=== PATIENT | male | born 1965 | race Caucasian/White ===

== ENCOUNTER 2019-03-18 17:43 | Emergency (ER) | payer BC ==
[2019-03-18] MEDS ORDERED: Diph,Pert(Acell),Tet Vac 0.5 ML SYR IM ONE (19:12)
--- NOTE | 2019-03-18 19:19 | Emergency Department Record ---
History of Present Illness - General Chief Complaint: Laceration(s) Stated Complaint: RT INDEX LAC Time Seen by Provider: 03/18/19 19:08 Source: Patient Mode of Arrival: Ambulatory Limitations: No limitations - History of Present Illness Initial Commments: The patient is here due to cutting the tip of his R 2nd finger off at home with a knife 2 hours ago. His Td is not UTD. He does complain of mild pain. Onset/Timin -: Minutes(s) Place: Home Context: Accidental - [place] Coma Scale Eye Response: (4) Open spontaneously Motor Response: (6) Obeys commands Verbal Response: (5) Oriented Lul Total: 15 - Related Data Patient Tetanus UTD (within 5 yrs): No Home Medications Medication Instructions Recorded Confirmed Last Taken Omeprazole 20 mg PO DAILY 03/18/19 03/18/19 1 Day Ago ~03/17/19 Previous Rx's Medication Instructions Recorded Cephalexin [Keflex] 500 mg PO QID #20 cap 03/18/19 Allergies Allergy/AdvReac Type Severity Reaction Status Date / Time No Known Allergies Allergy HYPERSENSIT Verified 03/18/19 19:07 IVITY Travel Screening - Travel/Exposure Within Last 30 Days Have you traveled within the last 30 days?: No - Travel/Exposure Within Last Year Have you traveled outside the [place] in the last year?: No - Additonal Travel Details Have you been exposed to anyone with a communicable illness?: No - Travel Symptoms Symptom Screening: None Review of Systems Constitutional: Denies: Chills, Fever Past Medical History - SOCIAL HISTORY Smoking Status: Never smoker Alcohol Use: Rare Drug Use: None - RESPIRATORY Hx Respiratory Disorders: No - CARDIOVASCULAR Hx Cardio Disorders: Yes Hx Hypertension: Yes - NEURO Hx Neuro Disorders: No - GI Hx GI Disorders: No - Hx Genitourinary Disorders: No - ENDOCRINE Hx Endocrine Disorders: No - MUSCULOSKELETAL Hx Musculoskeletal Disorders: No - PSYCH Hx Psych Problems: No - HEMATOLOGY/ONCOLOGY Hx Hematology/Oncology Disorders: No Family Medical History Any Significant Family History?: Yes Physical Exam - General General Appearance: Alert, Oriented x3, Cooperative, No acute distress - Head Head exam: Atraumatic - Eye Eye exam: Normal appearance - Extremities Extremities exam: negative: Normal inspection (There is a 1x1 cm superficial lac over the distal finger tip where the skin is avulsed. There is no bone or tendon evident. There is nothing to suture.) Image of Finger Tip: 1 - Finger tip avulsion. Course Vital Signs 03/18/19 19:00 Temperature 98.3 F Pulse Rate 75 Respiratory 18 Rate Blood Pressure 122/80 Pulse Ox 98 - Reevaluation(s) Reevaluation #1: I did explain to the patient the need for a tube gauze dressing for 2 days then to have the finger covered with a bandaid during the day. He is to see his PCP this week for recheck. 03/18/19 19:18 Reevaluation #2: The R index finger tip avulsion was cleansed with betadine and sterile saline. A tube gauze dressing will be applied. 03/18/19 19:21 Disposition Disposition: Discharge Clinical Impression: Laceration of index finger Qualifiers: Encounter type: initial encounter Damage to nail status: with damage Foreign b maria victoria presence: without foreign body Laterality: right Qualified Code(s): S61.310A - Laceration without foreign body of right index finger with damage to nail, initial encounter Disposition: Home, Self-Care Condition: (2) Stable Instructions: Laceration (ED) Additional Instructions: Keep the tube gauze dressing on for 2 days and take the Keflex. Please see your family doctor this week for recheck. Return to the ER for any worsening s ymptoms. Prescriptions: Cephalexin [Keflex] 500 mg PO QID #20 cap Forms: Patient Portal Access Time of Disposition: 19:21 Quality - Quality Measures Quality Measures: N/A - Blood Pressure Screening View Details: Yes Does Patient Have Any of the Following: No Blood Pressure Classification: Pre-Hypertensive BP Reading Systolic Measurement: 122 Diastolic Measurement: 80 Screening for High Blood Pressure: < Pre-Hypertensive BP, F/U Documented > [[id number]] Pre-Hypertensive Follow-up Interventions: Referral to alternative/primary care provider.
== END 2019-03-18 19:34 | disposition home or self-care (01) ==
LOC: ER 17:43
DX: S61.210A Laceration without foreign body of right index finger without damage to nail, initial encounter (principal); W26.0XXA Contact with knife, initial encounter; Y92.009 Unspecified place in unspecified non-institutional (private) residence as the place of occurrence of the external cause; I10 Essential (primary) hypertension
CPT/HCPCS: 90715; 96372; 99283